=== PATIENT | female | born 1970 | race Caucasian/White ===

== ENCOUNTER 2022-07-19 14:07 | Emergency (ER) | payer OTHER ==
[~2022-07-19] VITALS: Ht 168 cm; Wt 60.0 kg
[2022-07-19 14:51] LABS: BASOPHIL 0.3 % (0-2); EOSINOPHIL 0.1 % (0-5); HCT 46.6 % (37.0-47.0); HGB 15.4 g/dl (12.5-16.0); LYMPHOCYTE 6.5 % (15-48); MCH 31.2 pg (25.0-31.0); MCV 94.3 fL (78.0-100.0); MONOCYTE 3.6 % (0-12); MPV 9.3 fL (6.0-9.5); NEUTROPHIL 89.1 % (41-80); NRBC 0; PLT 272 K/uL (150-400); RBC 4.94 M/uL (4.20-5.40); RDW 13.2 % (11.5-14.0); WBC 10.4 K/uL (4.0-10.5)
[2022-07-19 15:38] LABS: ALBUMIN 3.7 g/dL (3.4-5.0); BILIRUBIN - TOTAL 0.3 mg/dL (0.2-1.0); BUN/CREAT RATIO (CALC) 20.5 RATIO; CREATININE 0.73 mg/dL (0.51-0.95); GLOBULIN (CALCULATION) 3.5 g/dL; POTASSIUM 4.8 mmol/L (3.5-5.1); TOTAL PROTEIN 7.2 g/dL (6.4-8.2)
[2022-07-19 17:26] LABS: BILIRUBIN NEGATIVE (NEGATIVE); BLOOD TRACE-INTACT Ery/uL (NEGATIVE); CLARITY CLEAR (CLEAR); COLOR YELLOW (YELLOW); GLUCOSE (U) NORMAL (NORMAL); LEUKOCYTES TRACE Leu/uL (NEGATIVE); NITRITE NEGATIVE (NEGATIVE); PROTEIN 2+ mg/dL (NEGATIVE); SPECIFIC GRAVITY 1.025 (1.001-1.030); UROBILINOGEN 0.2 mg/dL (0.2-1.0)
[2022-07-19 17:34] LABS: BACTERIA 1+
== END 2022-07-19 18:17 | disposition home or self-care (01) ==
LOC: FER 14:07
PROVIDERS: Internal Medicine
DX: G40.909 Epilepsy, unspecified, not intractable, without status epilepticus (principal); F17.210 Nicotine dependence, cigarettes, uncomplicated
CPT/HCPCS: 36415; 70450; 80053; 81001; 83605; 84145; 85025; 87088; J1953